=== PATIENT | female | born 1930 | race Caucasian/White ===

== ENCOUNTER → 2016-12-28 | Outpatient (CLI) | payer MEDICARE, OTHER ==
[~2016-12-28] MED LIST: ACYCLOVIR800 MG PO; ALLOPURINOL100 M1 PO; AMOXICILLIN/CLA1 TA2 PO; ASPIRIN CHILDRE81 MG PO; ASPIRIN81 MG PO; ATENOLOL50 M1 PO; AZITHROMYCIN250 M1 PO; BISOPROLOL/HCTZ1 TA1 PO; CALCIUM 1200 W/1 SGL PO; CALCIUM 600600 M2 PO; CALCIUM WITH V1 EAC1 PO; CARVEDILOL 1212.5 MG PO; CEFDINIR 300MG300 MG PO; CLINDAMYCIN HC300 MG PO; FAMOTIDINE 20MG20 MG PO; FERROUS SULFATE65 MG PO; FLUTICASONE 50M16 GM; FUROSEMIDE40 MG PO; GABAPENTIN100 M1 PO; HYDROCODONE-APA1 TA1 PO; IRON90 MG PO; KEFLEX 500MG.500 MG PO; LEVOXYL0.075 MG PO; LORTAB 5/500 501 TAB PO; MACROBID 100MG100 MG PO; MELOXICAM7.5 MG PO; MULTIVITAMIN1 TA1 PO; NEO OT; NITROSTAT0.4 MG SL; OMEPRAZOLE40 MG PO; OMNICEF 300 MG300 MG PO; PLAQUENIL200 MG PO; POLY B OT; PREDNISONE 1MG.1 MG PO; PREDNISONE 20MG20 MG PO; PREDNISONE 5MG.5 MG PO; PRILOSEC20 M1 PO; SIMVASTATIN40 MG PO; TRIAMCINOL30 GM/TUBE TP; TYLENOL ES500 M1 PO; VICODIN 5/500 T1 TAB PO; [UNRECOGNIZED DRUG - OTHER] OT
--- NOTE | 2016-12-28 13:39 | RADIOLOGY REPORT PS360 ---
LUMBAR SPINE 5 VIEWS Ordering Physician: Yoan Rowan MD Patient Age: 86 years: Female HISTORY: RT SCIATICA mid back pain COMPARISON made to previous CT abdomen pelvis with spine reconstructions from May 2014. TECHNIQUE: 5 view lumbar spine series FINDINGS Again see degenerative disc space narrowing throughout the lower lumbar spine. Marked disc space narrowing with vacuum phenomena most evident L5/S1 and L3/4 with narrowing posteriorly at L4/5 suspect slight degenerative listhesis of L4 on 5 which is more evident than 2014. Prominent degenerative hypertrophic facet changes also evident throughout the L-spine most pronounced at the lower levels.. The patient has multiple compression fractures. There is been interval wedge compression fracture at T11 since 2014. With now over 30% loss of height... Superior endplate compression There is been progressive wedge compression fracture T12. Further compression further wedging with nowOver 60% loss of height anteriorly L2 with stable superior endplate compression and concavity with stabl up to up to-30% loss of height. Diffuse demineralization. Osteoporosis. Multilevel degenerative disc changes with multiple compression fractures. Incidental hiatal hernia noted along Cholecystectomy.. right BRUCE and left bipolar prosthesis IMPRESSION: Multiple compression fractures. When compared to 2014 CT images, there has been interval wedge compression fracture at T 11 with progressive wedge compression fracture T12. Yielding this more pronounced kyphosis at thoracolumbar junction Stable compression fracture superior L2 Diffuse demineralization likely osteoporosis. Marked degenerative disc space narrowing at multiple levels lower L-spine most evident at L3/4 and L5/S1. Posterior element facet hypertrophy throughout the spine most evident lower L-spine.
== END ==
LOC: RAD 10:30
DX: M54.31 Sciatica, right side (principal)

== ENCOUNTER → 2017-05-07 | Outpatient (CLI) | payer MEDICARE, OTHER ==
[~2017-05-07] MED LIST changes: +NORCO 325 MG-51 TAB PO
[2017-05-07 14:27] LABS: HEMOGLOBIN 10.4 g/dL (12.2-16.2); LYMPH # 1.9 K/mm3 (0.7-4.5); LYMPH % 18.9 % (10-50.0)
[2017-05-07 14:46] LABS: BUN 45 mg/dL (7-18)
[2017-05-07 14:55] LABS: GFR (ESTIMATED) 22 ML/MIN (59-)
== END ==
LOC: CARL-LAB 09:50
PROVIDERS: Internal Medicine Adolescent Medicine
DX: M1A.9XX1 Chronic gout, unspecified, with tophus (tophi) (principal)